=== PATIENT | male | born 1955 | race Caucasian/White ===

== ENCOUNTER 2018-02-23 18:53 | Emergency (ER) | payer MEDICAID ==
[~2018-02-23] VITALS: Ht 167.6 cm; Wt 79.0 kg
[2018-02-23] MEDS ORDERED: TRAZ-212 PO (19:01)
[2018-02-23] MEDS ORDERED: GABA-529 PO (19:01)
[2018-02-23 20:34] LABS: CLARITY URINE CLEAR (CLEAR); COLOR URINE YELLOW (YELLOW); KETONES URINE NEGATIVE (NEGATIVE); LEUKOCYTE ESTERASE URINE NEGATIVE (NEGATIVE); NITRITE URINE NEGATIVE (NEGATIVE); OCCULT BLOOD URINE NEGATIVE (NEGATIVE); PH URINE 6.5 (4.5-8.0); PROTEIN URINE NEGATIVE (NEGATIVE); SPECIFIC GRAVITY URINE 1.008 (1.005-1.030); UROBILINOGEN URINE 0.2 E.U./dL (0.2-1.0)
[2018-02-23 21:54] VITALS: BP 128/84
== END 2018-02-23 21:53 | disposition home or self-care (01) ==
LOC: ER 18:53
DX: K46.9 Unspecified abdominal hernia without obstruction or gangrene (principal); R42 Dizziness and giddiness; J45.909 Unspecified asthma, uncomplicated; F31.9 Bipolar disorder, unspecified; F20.9 Schizophrenia, unspecified; Z86.73 Personal history of transient ischemic attack (TIA), and cerebral infarction without residual deficits
CPT/HCPCS: 81003; 99283

== ENCOUNTER 2019-01-03 05:34 | Emergency (ER) | payer MEDICARE, MEDICAID ==
[~2019-01-03] VITALS: Ht 167.6 cm; Wt 75.0 kg
[~2019-01-03 05:34] MED LIST: GABA-529 PO; TRAZ-251 PO
[2019-01-03] MEDS ORDERED: ACETAMINOPHEN WITH CODEINE 300/30MG TABLET PO ONE (07:30)
[2019-01-03 09:04] VITALS: BP 105/60
== END 2019-01-03 09:05 | disposition home or self-care (01) ==
LOC: ER 05:34
DX: K40.90 Unilateral inguinal hernia, without obstruction or gangrene, not specified as recurrent (principal); F17.200 Nicotine dependence, unspecified, uncomplicated; F12.10 Cannabis abuse, uncomplicated; J45.909 Unspecified asthma, uncomplicated; F31.9 Bipolar disorder, unspecified; J44.9 Chronic obstructive pulmonary disease, unspecified; Z90.49 Acquired absence of other specified parts of digestive tract; Z98.890 Other specified postprocedural states; Z59.0 Homelessness
CPT/HCPCS: 99283; 99406

== ENCOUNTER 2024-03-10 02:19 | Emergency (ER) | payer MEDICARE, MEDICAID ==
[~2024-03-10] VITALS: Ht 175.3 cm; Wt 87.0 kg
[2024-03-10 02:26] VITALS: TEMP 98.3; O2SAT 99
[2024-03-10 02:45] VITALS: BP 112/55; PULSE 64; RESP 18
[2024-03-10] MEDS: IBUPROFEN 600MG TABLET PO ONE (02:45)
[2024-03-10] MEDS ORDERED: ACET-2708 MT (03:25)
== END 2024-03-10 03:59 | disposition home or self-care (01) ==
LOC: ER 02:40
DX: M25.562 Pain in left knee (principal); F12.90 Cannabis use, unspecified, uncomplicated; J45.909 Unspecified asthma, uncomplicated; F31.9 Bipolar disorder, unspecified; J44.9 Chronic obstructive pulmonary disease, unspecified; Z79.899 Other long term (current) drug therapy; Z90.89 Acquired absence of other organs; Z90.49 Acquired absence of other specified parts of digestive tract
CPT/HCPCS: 73560; 99283

== ENCOUNTER 2024-11-17 09:58 | Emergency (ER) | payer MEDICARE, MEDICAID ==
[~2024-11-17] VITALS: Ht 172.7 cm; Wt 86.3 kg
[~2024-11-17 09:58] MED LIST changes: +ACET-2708 MT
[2024-11-17 10:02] VITALS: BP 144/87; O2SAT 98
[2024-11-17 10:03] VITALS: PULSE 83; RESP 18; O2SAT 98
[2024-11-17] MEDS ORDERED: NAPR-681 MT (10:58)
[2024-11-17] MEDS: IBUPROFEN 600MG TABLET PO ONE (11:17)
== END 2024-11-17 11:18 | disposition home or self-care (01) ==
LOC: ER 09:58
DX: G89.29 Other chronic pain (principal); M25.561 Pain in right knee; M25.562 Pain in left knee; F20.9 Schizophrenia, unspecified; F12.90 Cannabis use, unspecified, uncomplicated; F31.9 Bipolar disorder, unspecified; J44.9 Chronic obstructive pulmonary disease, unspecified; Z79.1 Long term (current) use of non-steroidal anti-inflammatories (NSAID); Z91.030 Bee allergy status
CPT/HCPCS: 99282